=== PATIENT | male | born 1970 | race Caucasian/White ===

== ENCOUNTER 2020-11-02 14:32 | Outpatient (RCR) | payer BC ==
[~2020-11-02 14:32] MED LIST: DEXAMETHASONE 4 MG/ML TOP SCH
== END 2020-12-13 14:18 | disposition home or self-care (01) ==
DX: M25.871 Other specified joint disorders, right ankle and foot (principal); M77.8 Other enthesopathies, not elsewhere classified

== ENCOUNTER 2021-04-04 08:01 | Outpatient (RCR) | payer BC | END 2021-04-04 08:45 | disposition home or self-care (01) | DX: M79.672 Pain in left foot (principal); M79.671 Pain in right foot ==